=== PATIENT | male | born 1955 | race Caucasian/White ===

== ENCOUNTER 2017-01-24 12:16 | Day surgery (SDC) | payer OTHER ==
[~2017-01-24] VITALS: Ht 172.7 cm; Wt 76.4 kg
[2017-01-24 13:38] VITALS: Ht 172.7 cm; Wt 76.4 kg
[2017-01-24] MEDS ORDERED: ASPIRIN (13:44)
[2017-01-24] MEDS ORDERED: LIPITOR (13:44)
[2017-01-24] MEDS ORDERED: VITAMIN D (13:44)
[2017-01-24] MEDS ORDERED: BRILINTA (13:44)
[2017-01-24] MEDS ORDERED: METOPROLOL (13:44)
[2017-01-24] MEDS ORDERED: PROPOFOL 20 ML ONE (14:43)
[2017-01-24] MEDS ORDERED: FENTAnyl 50 MCG/ML VIAL ONE (14:43)
[2017-01-24] MEDS ORDERED: MIDAZOLAM 1 MG/ML 2 ML INJ ONE (14:44)
[2017-01-24 15:55] VITALS: BP 109/67; PULSE 61; RESP 19
--- NOTE | 2017-01-25 04:13 | GILP ---
DATE OF PROCEDURE: 01/24/2017 PROCEDURE: Esophagogastroduodenoscopy with biopsies. BRIEF HISTORY AND INDICATIONS: The patient is being evaluated for dyspepsia and reflux symptoms. PREMEDICATION: Monitored anesthesia care by anesthesiologist. SURGEON: Anna Marie Calderon MD INSTRUMENT USED: Olympus panendoscope. TECHNIQUE: After informed consent, with the patient/relatives understanding the procedure, its indic ations, potential risks and complications, including but not limited to: allergic reaction, bleeding , perforation or infection, and after all pertinent questions were answered to the patients satisfac tion, the patient/relatives signed witnessed informed consent. Following this, premedication was administered slowly IV push under careful cardiovascular and respi ratory monitoring with pulse oximetry, automatic blood pressure and court monitor. Once the sedative effect was achieved the patient was place in the left lateral decubitus, the panen doscope was introduced and advanced under visual control. Careful examination of the upper gastrointestinal tract, both on insertion as well as withdrawal of the instrument disclosed the following findings: ESOPHAGUS: The distal esophagus shows erythema and edema and linear erosion of the mucosa. There i s also proximal displacement of the EG junction. Biopsies were obtained to rule out Marcos esophag us. STOMACH: Upon entrance to the stomach, air was insufflated, the gastric glynn distended normally. There was significant erythema and edema of the mucosa which appears more prominent in the proximal stomach. Biopsies were obtained to rule out H. pylori infection. PYLORUS: The pylorus appears patent and within normal limits, with no evidence of gastric outlet ob struction. DUODENUM: The duodenal mucosa was carefully examined in the duodenal bulb as well as the second por tion of the duodenum and appears unremarkable with no evidence of duodenitis, ulcer or neoplasm. The instrument was then withdrawn, the patient tolerated the procedure well and was transfer out of the endoscopy suite awake, and in good condition to continue recovery under observation IMPRESSION: 1. Erosive esophagitis. Rule out Marcos esophagus. Biopsies obtained. 2. Gastritis. Rule out Helicobacter pylori infection. Biopsies obtained. PLAN: The patient will be treated with PPIs, i.e. omeprazole 40 mg daily. Further recommendation w ill depend on his clinical course as well as review of biopsies. Dictated By: ANNA MARIE CALDERON MS/JUSTIN Conf#: [id number] DID#: [id number]
--- NOTE | 2017-01-25 04:15 | GILP ---
DATE OF PROCEDURE: 01/24/2017 PROCEDURE: Colonoscopy to cecum. BRIEF HISTORY AND INDICATIONS: The patient is being evaluated for colorectal cancer screening. PREMEDICATION: Monitored anesthesia care by anesthesiologist. SURGEON: Anna Marie Calderon MD INSTRUMENT USED: Olympus colonoscope. PREPARATION: Adequate. TECHNIQUE: After informed consent, with the patient/relatives understanding the procedure, its indic ations potential risks and complications, including but not limited to: allergic reaction, bleeding, perforation, infection, missed lesions and after all pertinent questions were answered to the patie nt's satisfaction, the patient/relatives signed the witnessed informed consent. Following this, premedication was administered slowly IV push by under careful cardiovascular and re spiratory monitoring with pulse oximetry, automatic blood pressure and monitoring manager. Once the sedativ e effect was achieved, the patient was placed in the left lateral decubitus position, digital rectal examination was performed. The colonoscope was then introduced and advanced under visual control th roughout all segments of the colon including: the rectum, sigmoid, descending colon, splenic flexure , transverse colon, hepatic flexure, ascending colon and finally reaching the cecum which was clearl y identified by transillumination, finger indentation and the ileocecal valve. Careful examination o f the mucosa of the lower gastrointestinal tract both on insertion as well as withdrawal of the inst rument disclosed the following findings: Rectal Examination: No evidence of perirectal disease, no masses. Colonic Mucosa: The colonic mucosa is entirely unremarkable throughout. The ileocecal valve was cl early identified and appears unremarkable. The instrument was withdrawn. No additional abnormaliti es were noted with the exception of moderate sized internal hemorrhoids. The instrument was then withdrawn. The patient tolerated the procedure well and was transferred out of the Endoscopy Suite awake and in good condition to continue recovery under observation. IMPRESSION: Moderate sized internal hemorrhoids. Otherwise, normal colonic mucosa to cecum. PLAN: The patient will be followed up as an outpatient. Annual Hemoccult stool testing is recommen ded, and screening colonoscopy in 5 years is also recommended. Dictated By: ANNA MARIE CALDERON MS/JUSTIN Conf#: [id number] DID#: [id number]
== END 2017-01-24 18:16 | disposition home or self-care (01) ==
LOC: GIL 12:16
PROVIDERS: ATTEND Internal Medicine Gastroenterology
DX: Z12.11 Encounter for screening for malignant neoplasm of colon (principal); K21.0 Gastro-esophageal reflux disease with esophagitis; K64.8 Other hemorrhoids; R10.13 Epigastric pain; K29.70 Gastritis, unspecified, without bleeding; E78.5 Hyperlipidemia, unspecified; I25.10 Atherosclerotic heart disease of native coronary artery without angina pectoris; I25.2 Old myocardial infarction; Z87.891 Personal history of nicotine dependence
CPT/HCPCS: 43239; 45378; 88305; 88312; 88313; J2250; J3010; Z7610